=== PATIENT | male | born 1940 | race Caucasian/White ===

== ENCOUNTER 2017-02-25 08:50 | Day surgery (SDC) | payer MEDICARE ==
--- NOTE | 2017-02-18 16:42 | PCM.ANEPRE ---
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 Pt functional capacity >4. Recent IHR 2017 x2 anesthesia records unavailable. Comorbidities include Chronic AF, intermittant PPM 2* tachybrady syndrome, MARISELA, HH/GERD, Obesity. In light of retained functional capacity, will defer to PE by DOS anesthesiologist rather than further specialty evaluation. Marino Carrington DO Feb 18, 2017 16:42
[~2017-02-25] VITALS: Ht 177.8 cm; Wt 88.1 kg
[2017-02-25] VITALS (9 sets, daily range): BP systolic 120–130; BP diastolic 53–64; PULSE 54–63; RESP 12–22; O2SAT 97–100
[~2017-02-25 08:50] MED LIST: ATEN100T PO; CeFAZolin 2 Gm/50 mL D5W IV Premix IV SCH; DIGO250T72 PO; DOCU-41 PO; L.AC1CAP5 PO; LIP40 PO; Lactated Ringer's 1,000 ML IV SCH; POLY17PO6 PO; WARF2.5T82 PO
[2017-02-25] MEDS ORDERED: Propofol 10,000 mCg/mL 20 mL Inj ONE (08:51)
[2017-02-25] MEDS ORDERED: fentaNYL-PF 50 mCg/mL 2 mL Inj ONE (08:51)
[2017-02-25] MEDS ORDERED: Rocuronium 10 mg/mL 5 mL Inj ONE (08:51)
[2017-02-25] MEDS ORDERED: Dexamethasone 4 mg/mL Inj ONE (08:51)
[2017-02-25] MEDS ORDERED: Phenylephrine/NS 100 mCg/mL 10 mL Syringe IVPUSH ONE (08:51)
[2017-02-25] MEDS ORDERED: Ondansetron 2 mg/mL 2 mL Inj ONE (08:51)
[2017-02-25 10:13] LABS: INR 1.03 ratio
[2017-02-25] MEDS ORDERED: Lactated Ringer's 1,000 ML IV ONE ×2 (11:14→15:40)
[2017-02-25] MEDS ORDERED: Bupivacaine-MPF 0.5% 30 mL Inj INFILTRATE ONE (11:53)
[2017-02-25] MEDS ORDERED: Lactated Ringer's 500 ML IV PRN (12:01)
[2017-02-25] MEDS ORDERED: Lactated Ringer's 1,000 ML IV SCH (12:01)
--- NOTE | 2017-02-25 12:01 | PCM.HPANE ---
Patient Data Surgeon Admitting Provider: Attending Provider:Inessa Oro MD Primary Care Physician:Bucky Andujar MD Other Provider: Reason for Visit Recurrent Left Inguinal Hernia Ht/WT & BMI Height (Feet): 5 Height (Inches): 10 Weight (Kilograms): 88.72 Body Mass Index 28.00 Allergies Coded Allergies: No Known Allergies (Verified , 02/17/17) Past Anesthesia History Anesthesia History: Denies:: Abnormal Airway, Anesthesia Reactions, Difficult Intubation, Fam Anesthesia Reaction, Fam Malignant Hypertherm, Malignant Hyperthermia Diabetes History Hx Diabetes?: No MRSA MRSA: No Medications Blood Thinner: Coumadin Hypertension Medication: No Home Meds Incl Beta Magi: No Reported Medications Warfarin Sodium 2.5 Mg Tablet3.75 Mg PO 2xweek 30 Days Ref 0 02/17/17 Warfarin Sodium 2.5 Mg Tablet2.5 Mg PO 5xweekly 30 Days Ref 0 02/17/17 Docusate Sodium (Colace)100 Mg [id number] Mg PO DAILY PRN For Constipation Ref 0 02/17/17 L.acid/L.casei/B.bif/B.bernardino/Fos (Probiotic Blend Capsule)1 Each Capsule1 Each PO DAILY 02/17/17 Polyethylene Glycol 3350 (Miralax)17 Gm Powd.pack17 Gm PO DAILY 02/17/17 Digoxin 250 Mcg Tjjysf647 Mcg PO DAILY #30 TABLET Ref 0 02/17/17 Atorvastatin (Lipitor)40 Mg Frafdu90 Mg PO DAILY Ref 0 02/17/17 Atenolol 100 Mg Thjjmc013 Mg PO BID Ref 0 02/17/17 History History of ENT Problems?: Yes HEENT History: Positive for:: Cataracts (bilateral) Denies:: Abnormal Airway Difficult Intubation Dysphagia Glaucoma Hearing Problem Sinus Problem TMJ Denture Type: None Teeth Condition: Within Normal Limits Hx of Heart Problems?: Yes Cardiovascular History: Positive for:: Atrial Fibrillation Cardiac Surgery (pacemaker) Heart Murmur Irregular Heartbeat (occ palpitations ) Pacemaker Denies:: AICD Chest Pain Hypertension Thrombophlebitis Valvular Heart Disease (aortic valve- pending repeat echo) Other History/Comments Patient reports good functional capacity greater than 4 METS. Denies recent problems with chest pain or FERRARO. Can walk 2 FOS. Seen recently by retail financial analyst who feels he is well compensated. Hx of Respiratory Problem?: Yes Respiratory History: Positive for:: Use of C-PAP Machine (inconsistent use) Denies:: Asthma COPD Cough Hemoptysis Oxygen Administration Pneumonia Tuberculosis Other History/Comment Encouraged patient to use his CPAP as long as he is on opioid pain medications. Hx Neurologic Problems?: No Neurological History: Denies:: Alzheimer's Disease CVA Dementia Dizziness Headaches Multiple Sclerosis Parkinson's Disease Seizures TIA Hx of GI Problems?: Yes Other GI Pertinent History: recurrent left inguinal hernia current admission problem Hx of Problems?: Yes Genitourinary History: Positive for:: Kidney Stones (kidney stone- non obstructive- ) Denies:: Urinary Tract Infection Male Hx: Denies:: Prostate Problems Scrotal Mass Testicular Surgery Skin History: Denies:: History Skin Disorders? Pressure Ulcers Hx Musculoskeletal Problems?: No Musculoskeletal History: Denies:: Back Injury Joint Replacement Musculoskeletal Trauma Myasthenia Gravis Osteoarthritis Rheumatoid Arthritis Systemic Lupus Psycho Social History: Denies:: Anxiety Hx Depression Hx Surgeries?: Yes (pacemaker x 2, hemorrhoids, colon resection, appy, lap susan) Hx Any Other Health Problems?: No Other History: Positive for:: Cancer (skin cancers) Denies:: Thyroid Disease History Blood Transfusions: Positive for:: Accept Blood Products? Denies:: Blood Transfusions Hx Diabetes: No Hx Alcohol Use: YesAlcoholic Drinks Per Day: one to three beers monthlyHx Substance Use: No Smoking Status: Former Smoker Have You Smoked inLast 12 mo: No Stop/Bang S-Snoring: Do You Snore Loudly: No T-Tired: feel tired, fatigued: No O-Obsered: Observed not breath: No P-Blood Pressure: treated: Yes B- Body Mass Index > 35 kg/m2: No A- Age over 50: Yes N- Neck Large Circumference: No G- Gender Male: Yes MARISELA Total Score: 3 MARISELA Category 4 OutPt Procedure: Yes Risk Assessment Category Category 1A: Patient has history of documented sleep apnea, and HAS NOT received any narcotic, sedative or anesthesia administration during this stay. Category 1B: Patient has history of documented sleep apnea, and HAS received any narcotic , sedative or anesthesia administration during this stay Category 2: Patient has SUSPECTED Obstructive Sleep Apnea, and HAS received any narcotic , sedative or anesthesia administration during this stay. Category 3: Patient has SUSPECTED Obstructive Sleep Apnea and HAS NOT received narcotic, sedative or anesthesia administration during this stay. Category 4: Outpatient in Procedural Areas with known sleep apnea or who screen positive for High Risk via the STOP/BANG questionnaire. Exam Exam General Appearance: Alert HEENT/AIRWAY: MP 2, Neck Movement (from, 3 fb) Lungs: Clear to Auscultation Heart: Regular Rate/Rhythm, Murmur Plan Impression Patient chart reviewed, patient interviewed and anesthestic plan with risks, benefits, and alternatives discussed, and informed consent obtained. NPO per Anesth. Guidelines: Yes ASA Physical Status: ASA3 Severe Disease Anesthetic Plan: GA Bene/Risks/Altern/Consents: Yes HP Complete Prior to Induction: Yes Other Discussed GETA with increased risk of cardiac complications including pacemaker dysfunction. All questions were answered and he agrees to proceed. Samuel Eddy MD Feb 25, 2017 08:31
[2017-02-25] MEDS ORDERED: fentaNYL-PF 50 mCg/mL 2 mL Inj IVPUSH PRN (12:05)
[2017-02-25] MEDS ORDERED: MetoCLOpramide 5 mg/mL 2 mL Inj IVPUSH PRN (12:05)
[2017-02-25] MEDS ORDERED: HYDROmorphone 1 mg/mL Inj IVPUSH PRN (12:05)
[2017-02-25] MEDS ORDERED: EPHEDrine Sulfate 50 mg/mL Inj IVPUSH PRN (12:05)
[2017-02-25] MEDS ORDERED: Ondansetron 2 mg/mL 2 mL Inj IVPUSH PRN (12:05)
[2017-02-25] MEDS ORDERED: Dexamethasone 4 mg/mL Inj IVPUSH PRN (12:05)
[2017-02-25] MEDS ORDERED: Phenylephrine 10,000 mCg/mL Inj IVPUSH PRN (12:05)
[2017-02-25] MEDS ORDERED: oxyCODONE-Acetamin 5-325 mg Tablet PO PRN (14:50)
--- NOTE | 2017-02-25 14:51 | PCM.DISURG ---
Surgical Discharge Instruction Date of Service Feb 25, 2017 Dates of Hospitalization Date of Hospital Admission Providers Admitting Physician: Primary Care Physician: Bucky Andujar MD Attending Physician: Inessa Oro MD Diet Discharge Diet: No restrictions Activity Discharge Activity-General: Be up and about, Activity as pain allows, No lifting >15 pounds for 2 weeks, No driving while taking narcotic Dressing and Incisional Care Dressing Care: Allow Steri Stripes to fall off, Remove outer dressing after 24 hrs Hygiene: May shower after (24 hours), DO NOT soak incision under water, NO bathtub, hot tub or whirlpool Additional Instructions Discharge Instructions You may restart your warfarin/coumadin tomorrow night (02/26). You can restart your other home meds whenever you are scheduled to take them. Follow Up Plan Follow Up Plan Follow up in the general surgery clinic in the next several weeks. Call at any time with questions or concerns. Call your provider for: Fever, Chills, Increasing abdominal pain, Nausea, Vomiting, Wound redness, Discharge @ incision, pus discharge Reddy Elizabeth MD Feb 25, 2017 14:51
--- NOTE | 2017-02-25 15:13 | PCM.SURGOP ---
Surgical Operative Report Date of Service: Feb 25, 2017 Pre Operative Diagnosis Recurrent left inguinal hernia Post Operative Diagnosis Recurrent indirect left inguinal hernia Procedure: Laparoscopic repair of recurrent left inguinal hernia repair with mesh Surgeon and Security Guard Dispatcher: Surgeon: Inessa Oro MD Assistants: Leopoldo Elizabeth MD R3; Mindy Santos MS3 Indication for Procedure This is a 76-year-old man who presented with a symptomatic recurrent left inguinal hernia. His past surgical history included, in the last year, laparoscopic converted to open repair of an incarcerated right Spigelian hernia , open right inguinal hernia repair with mesh, open left internal hernia repair with mesh; and a remote history greater than 20 years ago of a sigmoid colectomy for perforated diverticulitis. He began to have symptoms recently of a left groin bulge associated with pain which was presenting him from performing most of his usual daily activities. CT scan and physical exam were consistent with recurrent left inguinal hernia. Findings: 1. Indirect left inguinal hernia with cord lipoma. 2. Intact previous right inguinal hernia repair. 3. Intact previous right lower quadrant Spigelian hernia repair. Procedure Details The patient was brought to the operating room and placed in supine position. General endotracheal anesthesia was smoothly induced. Antibiotics were infused. A warming blanket and SCDs were placed. The operative field was prepped and draped in sterile fashion. A Shaw had been placed. A pause was performed to confirm the correct patient, procedure, site, and side. The abdomen was entered using an infraumbilical transverse incision with an 11 mm Heather port under direct vision. Two additional 5 mm ports were placed in the right and left mid abdomen, at the level of the umbilicus. Inspection of the intraperitoneal cavity revealed a left inguinal hernia, with no right inguinal hernia. Strattice mesh from Spigelian hernia repair was visualized at the location of the intact hernia repair in the right lower quadrant. The peritoneum was opened using a combination of electrocautery and scissors. The preperitoneal space was dissected to expose Dean's ligament and the spermatic cord. Adequate medial and lateral dissection was performed such that there would be room for a mesh. The hernia was slowly reduced. This was a fairly prolonged dissection due to scar tissue from the previous operation. The contents of the cord was carefully preserved during the dissection. There was a moderate-sized cord lipoma which was dissected off of the sac and the cord and was removed. A Bard 3d Max preformed size large left inguinal hernia mesh was inserted through the umbilical port site and placed into position such that there is adequate coverage of the hernia, with inferior and medial overlap to prevent future recurrence at those sites. It was tacked with an absorbable tacking device to Dean's ligament medially, and to the anterior abdominal wall laterally, with care taken to avoid both the epigastrics and nerves. The peritoneum was closed laparoscopically with a running absorbable V-lock stitch. After this was placed, there was one gap in the peritoneum the medial side which was closed with an interrupted 3-0 silk stitch. Finally, there were 2 small holes in the peritoneum that had been created during the dissection which were closed with interrupted 2-0 and 3-0 silk stitches. The fascia of the infraumbilical port site was closed with a figure of eight 0-Vicryl stitch. Half percent Marcaine with epinephrine was infused into all port sites for postoperative analgesia. Skin was closed with a subcuticular Monocryl stitch. Sterile dressings were placed. The patient was awakened from general anesthesia and taken to the postoperative care unit in good condition. Complications There were no periprocedural complications identified. Surgical Specimen Removed: Yes Specimen sent to Pathology: No Surgical Specimen description: Cord lipoma Anesthetic Plan: GA Grafts, Implants: None Output, Estimated Blood Loss: 10 (ml) Blood Administration during suarez: No Inessa Oro MD Feb 25, 2017 15:13
--- NOTE | 2017-02-25 15:43 | PCM.ANEP1 ---
Post Anesthesia PACU Phase 1 Assessment Vital Signs Vital Signs Date Time Temp Pulse Resp B/P Pulse Ox O2 Delivery O2 Flow Rate FiO2 02/25/17 15:40 60 19 121/60 97 Room Air 02/25/17 15:30 36.4 61 22 127/58 98 Room Air 02/25/17 15:15 61 12 130/59 100 Room Air 02/25/17 15:00 36.3 55 17 129/55 100 Simple Mask 6 02/25/17 14:55 62 18 130/55 100 Simple Mask 6 02/25/17 14:50 54 20 130/53 100 Simple Mask 6 02/25/17 14:45 36.1 62 20 129/64 100 Simple Mask 6 02/25/17 09:10 36.1 63 12 126/64 97 Room Air Anesthetic Administered: GA Level of Alertness: Sleepy, easy to arouse MARADIAGA's with Equal Strength: Yes Pain: No Nausea or Vomiting: No CV Function & Hydration Stable: Yes Airway Device: Oxygen Delivery: Simple Mask Lungs: Clear to Auscultation PACU Phase 2 Assessment Complications: No Follow up Care: N/A Patient Instructions Provided: N/A Samuel Eddy MD Feb 25, 2017 15:43
== END 2017-02-25 23:59 | disposition home or self-care (01) ==
LOC: SAS 08:50
PROVIDERS: ATTEND Surgery
DX: K40.91 Unilateral inguinal hernia, without obstruction or gangrene, recurrent (principal); I10 Essential (primary) hypertension; E78.5 Hyperlipidemia, unspecified; N40.0 Benign prostatic hyperplasia without lower urinary tract symptoms; G47.33 Obstructive sleep apnea (adult) (pediatric); I48.91 Unspecified atrial fibrillation; Z95.0 Presence of cardiac pacemaker; Z87.891 Personal history of nicotine dependence; Z79.01 Long term (current) use of anticoagulants
CPT/HCPCS: 36415; 49651; 80162; 85610; C1781; J0690; J1100; J2250; J2370; J2405; J2704; J3010; J7120